=== PATIENT | female | born 1960 | race Caucasian/White ===

== ENCOUNTER 2020-09-20 18:23 | Emergency (ER) | payer MEDICARE, OTHER ==
[2020-09-20] MEDS ORDERED: Ketorolac 30 MG/ML SDV IM ONE (18:55)
[2020-09-20] MEDS ORDERED: Promethazine 25 MG/ML SDV IM ONE (18:56)
--- NOTE | 2020-09-20 19:10 | EDM.PDOC ---
<MichellePanda W - Last Filed: 09/20/20 19:45> ED HPI GENERAL MEDICAL PROBLEM - General Chief Complaint: Back Pain or Injury Stated Complaint: BACK PAIN Time Seen by Provider: 09/20/20 18:50 - Related Data Allergies Allergy/AdvReac Type Severity Reaction Status Date / Time almond Allergy Other Verified 09/20/20 18:42 cephalexin [From Keflex] Allergy Hives Verified 09/20/20 18:42 gluten Allergy Other Verified 09/20/20 18:42 metoclopramide [From Reglan] Allergy Other Verified 09/20/20 18:42 penicillin G Allergy Hives Verified 09/20/20 18:42 shellfish derived Allergy Anaphylactic Verified 09/20/20 18:42 Shock Sulfa (Sulfonamide Allergy Hives Verified 09/20/20 18:42 Antibiotics) Home Meds: Home Meds Butorphanol Tartrate 1 mg IH ASDIRECTED 09/20/20 [History] Escitalopram [Lexapro] 20 mg PO DAILY 09/20/20 [History] Galcanezumab-Gnlm [Emgality] 120 mg SQ ASDIRECTED 09/20/20 [History] Pantoprazole Sodium [Protonix] 20 mg PO DAILY 09/20/20 [History] Promethazine [Phenergan] 25 mg PO Q6H PRN 09/20/20 [History] QUEtiapine [SEROquel] 100 mg PO BID 09/20/20 [History] SUMAtriptan succinate [Imitrex] 100 mg PO ASDIRECTED PRN 09/20/20 [History] Sucralfate 1 gm PO QID 09/20/20 [History] Zolpidem [Ambien] 10 mg PO BEDTIME PRN 09/20/20 [History] busPIRone [Buspar] 15 mg PO BID 09/20/20 [History] clonazePAM [Clonazepam] 0.5 mg PO BID 09/20/20 [History] lamoTRIgine 600 mg PO BEDTIME 09/20/20 [History] oxyCODONE HCl/Acetaminophen [Oxycodone-Acetaminophen 5-325] 1 each PO Q12H PRN 09/20/20 [History] tiZANidine [Zanaflex] 4 mg PO Q8H PRN 09/20/20 [History] Course - Re-Assessments/Exams Free Text/Narrative Re-Assessment/Exam: 09/20/20 19:45 Minimal improvement with discomfort. Pt. was given morphine 4mg IM and dexamethasone 8mg IM. Departure - Departure Time of Disposition: 19:46 Disposition: Home, Self-Care 01 Clinical Impression: Sciatica, Chronic back pain - Discharge Information Instructions: Acetaminophen; Oxycodone capsules, Chronic Back Pain, [id number] Referrals: Cherrie Vega, PODIATRY PROFESSOR [Primary Care Provider] - Forms: ED Department Discharge Additional Instructions: Home to rest. Minimize physical activity. Follow-up with your PCP tomorrow. Because this is a chronic problem you will need to get your meds refilled from your PCP. Continue with your other medications. Pt. was also given 5 tablets of 5 mg oxycodone/acetaminophen. She reports that she only has 2 left. She was advised to follow-up in clinic [place] to get meds refilled. All questions were answered. <Jesús Terry - Last Filed: 09/21/20 20:42> ED HPI GENERAL MEDICAL PROBLEM - General Source of Information: Reports: Patient History Limitations: Reports: No Limitations - History of Present Illness INITIAL COMMENTS - FREE TEXT/NARRATIVE: Patient comes emergency department today from home with complaints of severe right lower back pain and buttocks pain. This patient relates at approximately 5 PM today she had a rather sudden onset of severe burning type pain in the right lower back down the lateral aspect of her right buttocks. She has had no recent falls trauma or injury. She did have an epidural injection in her back yesterday for her chronic bulging disc. She has no loss of bowel or bladder. She has had no recent falls trauma or injury. The epidural injection yesterday did not do much for her pain. She has no hematuria dysuria or urinary frequency. No black or tarry stools. No diarrhea. No flank pain. No fever no chills. She has chronically used multiple different medications to include Stadol Percocets for her chronic back pain. She did use the tizanidine at home prior to coming to the emergency department although she did not have much relief. Right Back Pain Score (Numeric/FACES): 9 Social & Family History - Tobacco Use Tobacco Use Status *Q: Never Tobacco User ED ROS GENERAL - Review of Systems Review Of Systems: Comprehensive ROS is negative, except as noted in HPI. ED EXAM,LOWER BACK PAIN/INJURY - Physical Exam Exam: See Below Text/Narrative:: Patient is quite anxious and constantly moving. She is mildly pale diaphoretic. She is crying without tears. She is yawning. Exam Limited By: No Limitations General Appearance: Alert, WD/WN, Anxious Eye Exam: Bilateral Eye: EOMI Respiratory/Chest: No Respiratory Distress, Lungs Clear Cardiovascular: Normal Peripheral Pulses, Regular Rate, Rhythm GI/Abdominal: Normal Bowel Sounds, Soft, Non-Tender (Female) Exam: Deferred Rectal (Female) Exam: Deferred Neurological: Alert, Normal Mood/Affect, Normal Plantar Flexion, No Motor/Sensory Deficits, Oriented x 3. No: Straight Leg Raise (L), Straight Leg Raise (R) DTR - Lower Extremities: 1+: Knee (R), Knee (L), Ankle (R), Ankle (L) Psychiatric: Anxious Skin Exam: Cool, Diaphoretic, Pallor Course - Vital Signs Last Recorded V/S: Last Vital Signs Temp 97.6 F 09/20/20 18:28 Pulse 88 09/20/20 18:28 Resp 20 09/20/20 18:28 BP 138/76 09/20/20 18:28 Pulse Ox 97 09/20/20 18:28 - Orders/Labs/Meds Meds: Medications Discontinued Medications Generic Name Dose Route Start Last Admin Trade Name Anirudh PRN Reason Stop Dose Admin Dexamethasone 8 mg 09/20/20 19:24 09/20/20 19:43 Dexamethasone 4 Mg/Ml Sdv IM 09/20/20 19:25 8 mg ONETIME ONE Administration Ketorolac Tromethamine 30 mg 09/20/20 18:55 09/20/20 19:06 Ketorolac 30 Mg/Ml Sdv IM 09/20/20 18:56 30 mg ONETIME ONE Administration Morphine Sulfate 4 mg 09/20/20 19:23 09/20/20 19:44 Morphine 4 Mg/Ml Syringe IM 09/20/20 19:24 4 mg ONETIME ONE Administration Oxycodone/Acetaminophen 1 packet 09/20/20 19:24 09/20/20 19:43 Take Home: Acetaminophen/Oxycodone 325-5 Mg, 5 Tab Pack PO 09/20/20 19:25 1 packet ONETIME ONE Administration Promethazine HCl 25 mg 09/20/20 18:56 09/20/20 19:07 Promethazine 25 Mg/Ml Sdv IM 09/20/20 18:57 25 mg ONETIME ONE Administration - Re-Assessments/Exams Free Text/Narrative Re-Assessment/Exam: 09/20/20 19:11 Phenergan 25mg IM Ketorolac 30mg IM Report to Panda Martinez PA-C. Sepsis Event Note (ED) - Evaluation Sepsis Screening Result: No Definite Risk
[2020-09-20] MEDS ORDERED: Morphine 4 MG/ML Syringe IM ONE (19:23)
[2020-09-20] MEDS ORDERED: Take Home: Acetaminophen/oxyCODONE 325-5 MG, 5 Tab Pack PO ONE (19:24)
[2020-09-20] MEDS ORDERED: Dexamethasone 4 MG/ML SDV IM ONE (19:24)
== END 2020-09-20 19:53 | disposition home or self-care (01) ==
LOC: VM.ED 18:23
DX: M54.41 Lumbago with sciatica, right side (principal); Z88.0 Allergy status to penicillin; Z88.2 Allergy status to sulfonamides; Z91.013 Allergy to seafood; Z88.1 Allergy status to other antibiotic agents; Z91.018 Allergy to other foods
CPT/HCPCS: 96372; 99283; A9270-GY; J1100; J1885; J2270; J2550

== ENCOUNTER 2020-10-24 12:08 | Emergency (ER) | payer MEDICARE, OTHER ==
[2020-10-24] MEDS ORDERED: Ketorolac 30 MG/ML SDV IM ONE (12:22)
--- NOTE | 2020-10-24 12:28 | EDM.PDOC ---
ED HPI GENERAL MEDICAL PROBLEM - General Chief Complaint: Back Pain or Injury Stated Complaint: back and rib pain Time Seen by Provider: 10/24/20 12:15 Source of Information: Reports: Patient History Limitations: Reports: No Limitations - History of Present Illness INITIAL COMMENTS - FREE TEXT/NARRATIVE: Patient comes in the emergency department with complaint of right rib pain radiating to the back. Patient states that she has a nondisplaced rib fracture of the ninth and 10th rib that was diagnosed on Sunday or Sunday of this last week.. Patient was given extensive amount of analgesic and narcotic medication to help with the pain and discomfort. Patient also has chronic pain and has medications for that. Patient states that she was given Toradol earlier in the week and she would be interested in receiving another Toradol injection. She states that the throbbing sensation on that right side is more apparent and concerning today. She denies any shortness of breath, chest pain, dizziness, numbness, tingling, decreased range of motion, abdominal pain, or genitourinary concerns. Patient states that she believes that her injury is healing however the swelling and discomfort became too much this morning and she would like something for pain. Onset: Gradual Location: Reports: Abdomen Quality: Reports: Ache, Throbbing Severity: Moderate Improves with: Reports: Rest Worsens with: Reports: Movement Context: Reports: Other - Related Data Allergies Allergy/AdvReac Type Severity Reaction Status Date / Time almond Allergy Other Verified 09/20/20 18:42 cephalexin [From Keflex] Allergy Hives Verified 09/20/20 18:42 gluten Allergy Other Verified 09/20/20 18:42 metoclopramide [From Reglan] Allergy Other Verified 09/20/20 18:42 penicillin G Allergy Hives Verified 09/20/20 18:42 shellfish derived Allergy Anaphylactic Verified 09/20/20 18:42 Shock Sulfa (Sulfonamide Allergy Hives Verified 09/20/20 18:42 Antibiotics) Home Meds: Home Meds Butorphanol Tartrate 1 mg IH ASDIRECTED 09/20/20 [History] Escitalopram [Lexapro] 20 mg PO DAILY 09/20/20 [History] Galcanezumab-Gnlm [Emgality] 120 mg SQ ASDIRECTED 09/20/20 [History] Pantoprazole Sodium [Protonix] 20 mg PO DAILY 09/20/20 [History] Promethazine [Phenergan] 25 mg PO Q6H PRN 09/20/20 [History] QUEtiapine [SEROquel] 100 mg PO BID 09/20/20 [History] SUMAtriptan succinate [Imitrex] 100 mg PO ASDIRECTED PRN 09/20/20 [History] Sucralfate 1 gm PO QID 09/20/20 [History] Zolpidem [Ambien] 10 mg PO BEDTIME PRN 09/20/20 [History] busPIRone [Buspar] 15 mg PO BID 09/20/20 [History] clonazePAM [Clonazepam] 0.5 mg PO BID 09/20/20 [History] lamoTRIgine 600 mg PO BEDTIME 09/20/20 [History] oxyCODONE HCl/Acetaminophen [Oxycodone-Acetaminophen 5-325] 1 each PO Q12H PRN 09/20/20 [History] tiZANidine [Zanaflex] 4 mg PO Q8H PRN 09/20/20 [History] ED ROS GENERAL - Review of Systems Review Of Systems: Comprehensive ROS is negative, except as noted in HPI. Constitutional: Reports: No Symptoms HEENT: Reports: No Symptoms Respiratory: Reports: No Symptoms Cardiovascular: Reports: No Symptoms Endocrine: Reports: No Symptoms GI/Abdominal: Reports: No Symptoms : Reports: No Symptoms Musculoskeletal: Reports: Back Pain Skin: Reports: No Symptoms Neurological: Reports: No Symptoms Psychiatric: Reports: No Symptoms Hematologic/Lymphatic: Reports: No Symptoms Immunologic: Reports: No Symptoms ED EXAM, GENERAL - Physical Exam Exam: See Below Exam Limited By: No Limitations General Appearance: Alert, WD/WN, No Apparent Distress Head: Atraumatic, Normocephalic Neck: Normal Inspection, Supple, Non-Tender, Full Range of Motion Respiratory/Chest: No Respiratory Distress, Lungs Clear, Normal Breath Sounds, No Accessory Muscle Use, Chest Non-Tender Cardiovascular: Normal Peripheral Pulses, Regular Rate, Rhythm, No Edema, No Rub GI/Abdominal: Normal Bowel Sounds, Soft, Non-Tender Back Exam: Normal Inspection Extremities: Normal Inspection, Normal Range of Motion, Non-Tender, No Pedal Edema, Normal Capillary Refill Neurological: Alert, Oriented Psychiatric: Normal Affect, Normal Mood Course - Orders/Labs/Meds Orders: Active Orders 24 hr Category Date Time Status Ketorolac [Toradol] Med 10/24/20 12:22 Once 30 mg IM ONETIME ONE Departure - Departure Time of Disposition: 12:30 Disposition: Home, Self-Care 01 Condition: Good Clinical Impression: Rib pain on right side - Discharge Information *PRESCRIPTION DRUG MONITORING PROGRAM REVIEWED*: Not Applicable *COPY OF PRESCRIPTION DRUG MONITORING REPORT IN PATIENT GERI: Not Applicable Instructions: Back Injury Prevention, [id number] Forms: ED Department Discharge Additional Instructions: 1. rest 2. Can take your PRN pain medications that are prescribed already 3. Continue all at home medications 4. Activity and diet as tolerated 5. Can take over the counter Tylenol for any pain or discomfort 6. use ice or heat for 20 minutes at a time 3-4 times a day 7. Follow up with PCP if symptoms continue, return, or progress 8. Call with any questions or concerns - My Orders Last 24 Hours: My Active Orders 10/24/20 12:22 Ketorolac [Toradol] 30 mg IM ONETIME ONE - Assessment/Plan Last 24 Hours: My Active Orders 10/24/20 12:22 Ketorolac [Toradol] 30 mg IM ONETIME ONE Assessment:: 1. rib and back pain Plan: 1. Toradol IM injection 2. Ice Applied to the affected limb 3. Medication offered to the patient 4. Education regarding splinting, activity, [id number] medications, and follow-up care provided. 5. All questions and concerns addressed with the patient prior to discharge
== END 2020-10-24 12:45 | disposition home or self-care (01) ==
LOC: VM.ED 12:08
DX: R07.81 Pleurodynia (principal); Z91.018 Allergy to other foods; Z88.1 Allergy status to other antibiotic agents; Z88.8 Allergy status to other drugs, medicaments and biological substances; Z88.0 Allergy status to penicillin; Z91.013 Allergy to seafood; Z88.2 Allergy status to sulfonamides; Z79.899 Other long term (current) drug therapy
CPT/HCPCS: 96372; 99283; J1885

== ENCOUNTER 2021-04-19 16:44 | Inpatient (IN) | payer MEDICARE, OTHER ==
[2021-04-19] MEDS: oxyCODONE 5 MG Tab PO PRN ×2 (18:38→22:42)
[2021-04-19] MEDS ORDERED: oxyCODONE 5 MG Tab PO PRN (19:40)
[2021-04-19] MEDS ORDERED: Promethazine 25 MG Tab PO PRN (19:40)
[2021-04-19] MEDS ORDERED: MOMETASONE FUROATE TOP PRN (19:40)
[2021-04-19] MEDS: lamoTRIgine 100 MG Tab PO SCH (20:48)
[2021-04-19] MEDS: ClonazePAM 0.5 MG Tab PO SCH (20:48)
[2021-04-19] MEDS: busPIRone 15 MG Tab PO SCH (20:48)
[2021-04-19] MEDS: QUEtiapine 100 MG Tab PO SCH (20:49)
[2021-04-19] MEDS: Gabapentin 400 MG Cap PO SCH (20:49)
[2021-04-19] MEDS: Pantoprazole 40 MG Tab.CR PO SCH (20:49)
[2021-04-20] MEDS: oxyCODONE 5 MG Tab PO PRN ×5 (03:14→20:27)
[2021-04-20 07:48] LABS: ANION GAP 9.4 mmol/L (5-15)
[2021-04-20] MEDS: Zinc Sulfate 220 MG Cap PO SCH (07:56)
[2021-04-20] MEDS: Gabapentin 400 MG Cap PO SCH ×4 (07:56→20:27)
[2021-04-20] MEDS ORDERED: Non-Formulary Medication 1 Each (Biotin [Biotin] 5 MG Capsule) PO SCH (08:00)
[2021-04-20] MEDS ORDERED: Zinc Sulfate 220 MG Cap PO SCH (08:00)
[2021-04-20] MEDS: Ascorbic Acid 500 MG Tab PO SCH (08:02)
[2021-04-20] MEDS: Pantoprazole 40 MG Tab.CR PO SCH ×2 (08:04→20:28)
[2021-04-20] MEDS: QUEtiapine 100 MG Tab PO SCH ×2 (08:05→20:28)
[2021-04-20] MEDS: Citalopram 20 MG Tab PO SCH (08:05)
[2021-04-20] MEDS: busPIRone 15 MG Tab PO SCH ×2 (08:05→20:27)
[2021-04-20] MEDS: Cholecalciferol (Vitamin D3) 25 MCG Tab PO SCH (08:05)
[2021-04-20] MEDS ORDERED: Potassium Chloride 20 MEQ Tab.ER PO ONE (13:52)
[2021-04-20] MEDS: Sucralfate 1 GM Tab PO SCH (16:16)
[2021-04-20] MEDS: ClonazePAM 0.5 MG Tab PO SCH (20:26)
[2021-04-20] MEDS: lamoTRIgine 100 MG Tab PO SCH (20:28)
[2021-04-21] MEDS: oxyCODONE 5 MG Tab PO PRN ×4 (02:00→14:31)
[2021-04-21] MEDS: Citalopram 20 MG Tab PO SCH (07:54)
[2021-04-21] MEDS: Cholecalciferol (Vitamin D3) 25 MCG Tab PO SCH (07:54)
[2021-04-21] MEDS: Pantoprazole 40 MG Tab.CR PO SCH ×2 (07:54→21:11)
[2021-04-21] MEDS: Magnesium Hydroxide 400 MG/5 ML Susp 30 ML Cup PO PRN (07:54)
[2021-04-21] MEDS: QUEtiapine 100 MG Tab PO SCH ×2 (07:55→21:12)
[2021-04-21] MEDS: Gabapentin 400 MG Cap PO SCH ×4 (07:55→21:11)
[2021-04-21] MEDS: Ascorbic Acid 500 MG Tab PO SCH (07:55)
[2021-04-21] MEDS: Zinc Sulfate 220 MG Cap PO SCH (07:55)
[2021-04-21] MEDS: busPIRone 15 MG Tab PO SCH ×2 (07:55→21:11)
[2021-04-21] MEDS: Sucralfate 1 GM Tab PO SCH (16:35)
[2021-04-21] MEDS ORDERED: Acetaminophen/oxyCODONE 325-5 MG Tab PO PRN (17:23)
[2021-04-21] MEDS: Acetaminophen/oxyCODONE 325-5 MG Tab PO PRN (18:46)
[2021-04-21] MEDS: Morphine 15 MG Tab.ER PO SCH (21:10)
[2021-04-21] MEDS: ClonazePAM 0.5 MG Tab PO SCH (21:11)
[2021-04-21] MEDS: lamoTRIgine 100 MG Tab PO SCH (21:11)
[2021-04-22] MEDS: Acetaminophen/oxyCODONE 325-5 MG Tab PO PRN ×3 (03:29→19:35)
[2021-04-22] MEDS: Polyethylene Glycol 3350 Powder 17 GM Packet PO PRN (08:33)
[2021-04-22] MEDS: Morphine 15 MG Tab.ER PO SCH ×2 (08:34→20:51)
[2021-04-22] MEDS: Gabapentin 400 MG Cap PO SCH ×4 (08:34→20:51)
[2021-04-22] MEDS: Pantoprazole 40 MG Tab.CR PO SCH ×2 (08:35→20:51)
[2021-04-22] MEDS: Ascorbic Acid 500 MG Tab PO SCH (08:35)
[2021-04-22] MEDS: Zinc Sulfate 220 MG Cap PO SCH (08:35)
[2021-04-22] MEDS: QUEtiapine 100 MG Tab PO SCH ×2 (08:35→20:51)
[2021-04-22] MEDS: Citalopram 20 MG Tab PO SCH (08:35)
[2021-04-22] MEDS: Cholecalciferol (Vitamin D3) 25 MCG Tab PO SCH (08:35)
[2021-04-22] MEDS: busPIRone 15 MG Tab PO SCH ×2 (08:36→20:50)
[2021-04-22] MEDS: Sucralfate 1 GM Tab PO SCH (16:33)
[2021-04-22] MEDS: Acetaminophen 325 MG Tab PO PRN (16:33)
[2021-04-22] MEDS: ClonazePAM 0.5 MG Tab PO SCH (20:50)
[2021-04-22] MEDS: lamoTRIgine 100 MG Tab PO SCH (20:50)
[2021-04-23] MEDS: Acetaminophen 325 MG Tab PO PRN ×2 (00:44→17:28)
[2021-04-23] MEDS: Acetaminophen/oxyCODONE 325-5 MG Tab PO PRN ×3 (04:20→20:44)
[2021-04-23] MEDS: Morphine 15 MG Tab.ER PO SCH ×2 (09:31→19:54)
[2021-04-23] MEDS: Pantoprazole 40 MG Tab.CR PO SCH ×2 (09:31→19:53)
[2021-04-23] MEDS: busPIRone 15 MG Tab PO SCH ×2 (09:32→19:53)
[2021-04-23] MEDS: Zinc Sulfate 220 MG Cap PO SCH (09:32)
[2021-04-23] MEDS: QUEtiapine 100 MG Tab PO SCH ×2 (09:32→19:53)
[2021-04-23] MEDS: Ascorbic Acid 500 MG Tab PO SCH (09:32)
[2021-04-23] MEDS: Citalopram 20 MG Tab PO SCH (09:32)
[2021-04-23] MEDS: Gabapentin 400 MG Cap PO SCH ×4 (09:32→19:52)
[2021-04-23] MEDS: Cholecalciferol (Vitamin D3) 25 MCG Tab PO SCH (09:32)
[2021-04-23] MEDS: Magnesium Hydroxide 400 MG/5 ML Susp 30 ML Cup PO PRN (10:53)
[2021-04-23] MEDS: Sucralfate 1 GM Tab PO SCH (17:28)
[2021-04-23] MEDS: lamoTRIgine 100 MG Tab PO SCH (19:51)
[2021-04-23] MEDS: ClonazePAM 0.5 MG Tab PO SCH (19:54)
[2021-04-24] MEDS: Acetaminophen/oxyCODONE 325-5 MG Tab PO PRN ×3 (05:20→21:35)
[2021-04-24] MEDS: Morphine 15 MG Tab.ER PO SCH ×2 (08:15→20:21)
[2021-04-24] MEDS: Pantoprazole 40 MG Tab.CR PO SCH ×2 (08:15→20:20)
[2021-04-24] MEDS: Ascorbic Acid 500 MG Tab PO SCH (08:15)
[2021-04-24] MEDS: Cholecalciferol (Vitamin D3) 25 MCG Tab PO SCH (08:15)
[2021-04-24] MEDS: Gabapentin 400 MG Cap PO SCH ×4 (08:15→20:20)
[2021-04-24] MEDS: Zinc Sulfate 220 MG Cap PO SCH (08:16)
[2021-04-24] MEDS: busPIRone 15 MG Tab PO SCH ×2 (08:16→20:21)
[2021-04-24] MEDS: Polyethylene Glycol 3350 Powder 17 GM Packet PO PRN (08:16)
[2021-04-24] MEDS ORDERED: Magnesium Citrate Solution 296 ML Bottle PO PRN (09:43)
[2021-04-24] MEDS ORDERED: Bisacodyl 10 MG Supp RECTAL PRN (09:45)
[2021-04-24] MEDS: Acetaminophen 325 MG Tab PO PRN ×2 (10:13→17:11)
[2021-04-24] MEDS: Docusate Sodium 100 MG Cap PO SCH ×2 (10:13→20:21)
[2021-04-24] MEDS: Sucralfate 1 GM Tab PO SCH (17:10)
[2021-04-24] MEDS: Citalopram 20 MG Tab PO SCH (20:20)
[2021-04-24] MEDS: ClonazePAM 0.5 MG Tab PO SCH (20:21)
[2021-04-24] MEDS: QUEtiapine 100 MG Tab PO SCH (20:21)
[2021-04-24] MEDS: lamoTRIgine 100 MG Tab PO SCH (20:22)
[2021-04-25] MEDS: Acetaminophen/oxyCODONE 325-5 MG Tab PO PRN ×3 (06:15→23:10)
[2021-04-25] MEDS: Morphine 15 MG Tab.ER PO SCH ×2 (08:35→20:35)
[2021-04-25] MEDS: Ascorbic Acid 500 MG Tab PO SCH (08:35)
[2021-04-25] MEDS: Pantoprazole 40 MG Tab.CR PO SCH ×2 (08:35→20:35)
[2021-04-25] MEDS: Zinc Sulfate 220 MG Cap PO SCH (08:36)
[2021-04-25] MEDS: Cholecalciferol (Vitamin D3) 25 MCG Tab PO SCH (08:36)
[2021-04-25] MEDS: Gabapentin 400 MG Cap PO SCH ×4 (08:36→20:35)
[2021-04-25] MEDS: busPIRone 15 MG Tab PO SCH ×2 (08:36→20:34)
[2021-04-25] MEDS: Docusate Sodium 100 MG Cap PO SCH ×2 (08:36→20:36)
[2021-04-25] MEDS: Acetaminophen 325 MG Tab PO PRN ×2 (11:43→15:54)
[2021-04-25] MEDS: Sucralfate 1 GM Tab PO SCH (18:02)
[2021-04-25] MEDS: lamoTRIgine 100 MG Tab PO SCH (20:33)
[2021-04-25] MEDS: QUEtiapine 100 MG Tab PO SCH (20:34)
[2021-04-25] MEDS: ClonazePAM 0.5 MG Tab PO SCH (20:36)
[2021-04-25] MEDS: Citalopram 20 MG Tab PO SCH (20:37)
[2021-04-26] MEDS: SUMAtriptan 50 MG Tab PO PRN (02:44)
[2021-04-26] MEDS: Acetaminophen/oxyCODONE 325-5 MG Tab PO PRN ×2 (06:10→14:27)
[2021-04-26] MEDS: Ascorbic Acid 500 MG Tab PO SCH (07:49)
[2021-04-26] MEDS: Docusate Sodium 100 MG Cap PO SCH ×2 (07:49→20:32)
[2021-04-26] MEDS: Pantoprazole 40 MG Tab.CR PO SCH ×2 (07:49→20:32)
[2021-04-26] MEDS: busPIRone 15 MG Tab PO SCH ×2 (07:49→20:33)
[2021-04-26] MEDS: Gabapentin 400 MG Cap PO SCH ×4 (07:49→20:33)
[2021-04-26] MEDS: Morphine 15 MG Tab.ER PO SCH ×2 (07:49→20:32)
[2021-04-26] MEDS: Cholecalciferol (Vitamin D3) 25 MCG Tab PO SCH (07:49)
[2021-04-26] MEDS: Zinc Sulfate 220 MG Cap PO SCH (07:51)
[2021-04-26 08:53] LABS: ANION GAP 10.9 mmol/L (5-15)
[2021-04-26] MEDS: Acetaminophen 325 MG Tab PO PRN ×2 (11:43→16:54)
[2021-04-26] MEDS: Sucralfate 1 GM Tab PO SCH (16:55)
[2021-04-26] MEDS: lamoTRIgine 100 MG Tab PO SCH (20:31)
[2021-04-26] MEDS: Citalopram 20 MG Tab PO SCH (20:32)
[2021-04-26] MEDS: ClonazePAM 0.5 MG Tab PO SCH (20:33)
[2021-04-26] MEDS: QUEtiapine 100 MG Tab PO SCH (20:34)
[2021-04-27] MEDS: Acetaminophen 325 MG Tab PO PRN ×4 (04:01→20:16)
[2021-04-27] MEDS: Acetaminophen/oxyCODONE 325-5 MG Tab PO PRN ×2 (04:02→10:59)
[2021-04-27] MEDS: Morphine 15 MG Tab.ER PO SCH ×2 (08:31→20:18)
[2021-04-27] MEDS: Zinc Sulfate 220 MG Cap PO SCH (08:32)
[2021-04-27] MEDS: Docusate Sodium 100 MG Cap PO SCH ×2 (08:32→20:15)
[2021-04-27] MEDS: Ascorbic Acid 500 MG Tab PO SCH (08:32)
[2021-04-27] MEDS: Cholecalciferol (Vitamin D3) 25 MCG Tab PO SCH (08:33)
[2021-04-27] MEDS: Pantoprazole 40 MG Tab.CR PO SCH ×2 (08:33→20:19)
[2021-04-27] MEDS: Gabapentin 400 MG Cap PO SCH ×4 (08:33→20:17)
[2021-04-27] MEDS: busPIRone 15 MG Tab PO SCH ×2 (08:33→20:19)
[2021-04-27] MEDS: Polyethylene Glycol 3350 Powder 17 GM Packet PO PRN (08:34)
[2021-04-27] MEDS: SUMAtriptan 50 MG Tab PO PRN (08:40)
[2021-04-27] MEDS: Sucralfate 1 GM Tab PO SCH (17:06)
[2021-04-27] MEDS: QUEtiapine 100 MG Tab PO SCH (20:15)
[2021-04-27] MEDS: ClonazePAM 0.5 MG Tab PO SCH (20:17)
[2021-04-27] MEDS: lamoTRIgine 100 MG Tab PO SCH (20:18)
[2021-04-27] MEDS: Citalopram 20 MG Tab PO SCH (20:19)
[2021-04-28] MEDS: Acetaminophen/oxyCODONE 325-5 MG Tab PO PRN ×3 (03:59→23:40)
[2021-04-28] MEDS: Docusate Sodium 100 MG Cap PO SCH ×2 (08:49→20:40)
[2021-04-28] MEDS: Polyethylene Glycol 3350 Powder 17 GM Packet PO PRN (08:49)
[2021-04-28] MEDS: Zinc Sulfate 220 MG Cap PO SCH (08:50)
[2021-04-28] MEDS: Gabapentin 400 MG Cap PO SCH ×4 (08:50→20:39)
[2021-04-28] MEDS: Cholecalciferol (Vitamin D3) 25 MCG Tab PO SCH (08:50)
[2021-04-28] MEDS: Ascorbic Acid 500 MG Tab PO SCH (08:50)
[2021-04-28] MEDS: Morphine 15 MG Tab.ER PO SCH ×2 (08:50→20:39)
[2021-04-28] MEDS: Pantoprazole 40 MG Tab.CR PO SCH ×2 (08:50→20:38)
[2021-04-28] MEDS: busPIRone 15 MG Tab PO SCH ×2 (08:51→20:40)
[2021-04-28] MEDS: Acetaminophen 325 MG Tab PO PRN (11:15)
[2021-04-28] MEDS: Sucralfate 1 GM Tab PO SCH (17:09)
[2021-04-28] MEDS: lamoTRIgine 100 MG Tab PO SCH (20:36)
[2021-04-28] MEDS: QUEtiapine 100 MG Tab PO SCH (20:38)
[2021-04-28] MEDS: Citalopram 20 MG Tab PO SCH (20:38)
[2021-04-28] MEDS: ClonazePAM 0.5 MG Tab PO SCH (20:40)
[2021-04-29] MEDS: Acetaminophen/oxyCODONE 325-5 MG Tab PO PRN (07:44)
[2021-04-29] MEDS: Morphine 15 MG Tab.ER PO SCH (07:53)
[2021-04-29] MEDS: busPIRone 15 MG Tab PO SCH (07:53)
[2021-04-29] MEDS: Docusate Sodium 100 MG Cap PO SCH (07:53)
[2021-04-29] MEDS: Gabapentin 400 MG Cap PO SCH ×2 (07:54→11:22)
[2021-04-29] MEDS: Pantoprazole 40 MG Tab.CR PO SCH (07:54)
[2021-04-29] MEDS: Ascorbic Acid 500 MG Tab PO SCH (07:54)
[2021-04-29] MEDS: Zinc Sulfate 220 MG Cap PO SCH (07:54)
[2021-04-29] MEDS: Cholecalciferol (Vitamin D3) 25 MCG Tab PO SCH (07:54)
[2021-04-29] MEDS: Acetaminophen 325 MG Tab PO PRN (11:22)
== END 2021-04-29 12:30 | disposition home or self-care (01) | DRG 561 ==
LOC: VM.MS 17:30
PROVIDERS: ADMIT Nurse Practitioner Family; ATTEND Nurse Practitioner Family
DX: Z47.89 Encounter for other orthopedic aftercare (principal); Z98.1 Arthrodesis status; G89.29 Other chronic pain; M54.59 Other low back pain; F11.90 Opioid use, unspecified, uncomplicated; F31.9 Bipolar disorder, unspecified; F90.9 Attention-deficit hyperactivity disorder, unspecified type; K21.9 Gastro-esophageal reflux disease without esophagitis; R13.14 Dysphagia, pharyngoesophageal phase; K20.90 Esophagitis, unspecified without bleeding; F41.1 Generalized anxiety disorder; K22.70 Barrett's esophagus without dysplasia; Z87.442 Personal history of urinary calculi; Z79.891 Long term (current) use of opiate analgesic; G43.909 Migraine, unspecified, not intractable, without status migrainosus; Z98.51 Tubal ligation status; Z98.890 Other specified postprocedural states; Z90.710 Acquired absence of both cervix and uterus; Z85.42 Personal history of malignant neoplasm of other parts of uterus; Z90.49 Acquired absence of other specified parts of digestive tract
CPT/HCPCS: 36415; 72131; 80053; 82728; 82746; 83540; 83550; 83605; 84145; 85025; 86140; 87040; 97110-GP; 97116-GP; 97162-GP; 97166-GO; 97530-GP; 97535-GO; A9270-GY

== ENCOUNTER 2021-07-02 19:29 | Emergency (ER) | payer MEDICARE, OTHER ==
[2021-07-02] MEDS ORDERED: Take Home: Acetaminophen/oxyCODONE 325-5 MG, 5 Tab Pack PO ONE (20:17)
[2021-07-02] MEDS ORDERED: Orphenadrine 60 MG/2 ML Inj IM ONE (20:17)
[2021-07-02] MEDS ORDERED: Take Home: Cyclobenzaprine 10 MG Tab, 4 Tab Pack PO ONE (20:34)
== END 2021-07-02 20:45 | disposition home or self-care (01) ==
LOC: VM.ED 19:29
DX: M54.50 Low back pain, unspecified (principal); Z88.0 Allergy status to penicillin; Z88.2 Allergy status to sulfonamides; Z91.013 Allergy to seafood; Z91.018 Allergy to other foods; Z88.1 Allergy status to other antibiotic agents; Z79.82 Long term (current) use of aspirin; Z79.899 Other long term (current) drug therapy
CPT/HCPCS: 96372; 99283; A9270-GY; J2360

== ENCOUNTER 2021-08-28 11:45 | Emergency (ER) | payer MEDICARE, OTHER ==
[2021-08-28] MEDS ORDERED: Sodium Chloride 0.9% 10 ML Syringe FLUSH PRN (11:57)
[2021-08-28] MEDS ORDERED: Ketorolac 30 MG/ML SDV IVPUSH ONE (11:57)
[2021-08-28] MEDS ORDERED: Sodium Chloride 0.9% 1,000 ML IV ONE (11:57)
[2021-08-28] MEDS ORDERED: Prochlorperazine 10 MG/2 ML SDV IV ONE (11:57)
[2021-08-28] MEDS ORDERED: diphenhydrAMINE 50 MG/ML SDV IVPUSH ONE (11:57)
[2021-08-28] MEDS ORDERED: Ondansetron 4 MG/2 ML SDV IVPUSH ONE (12:14)
== END 2021-08-28 12:55 | disposition home or self-care (01) ==
LOC: VM.ED 11:45
DX: G43.909 Migraine, unspecified, not intractable, without status migrainosus (principal); Z79.899 Other long term (current) drug therapy; Z88.2 Allergy status to sulfonamides; Z91.013 Allergy to seafood; Z88.0 Allergy status to penicillin; Z91.018 Allergy to other foods; Z88.8 Allergy status to other drugs, medicaments and biological substances; Z88.1 Allergy status to other antibiotic agents
CPT/HCPCS: 96361; 96374; 96375; 99283-25; 99284; J1200; J1885; J2405; J7030

== ENCOUNTER 2021-12-18 00:20 | Emergency (ER) | payer MEDICARE, OTHER ==
[2021-12-18] MEDS ORDERED: Sodium Chloride 0.9% 10 ML Syringe FLUSH PRN (00:26)
[2021-12-18] MEDS ORDERED: diphenhydrAMINE 50 MG/ML SDV IVPUSH ONE (00:27)
[2021-12-18] MEDS: diphenhydrAMINE 50 MG/ML SDV IVPUSH ONE (01:05)
[2021-12-18] MEDS: Ketorolac 15 MG/ML SDV IVPUSH ONE (01:06)
[2021-12-18] MEDS: Dexamethasone 4 MG/ML SDV IVPUSH ONE (01:06)
[2021-12-18] MEDS: Lactated Ringers 1,000 ML IV ONE (01:10)
[2021-12-18] MEDS: Ketamine 200 MG/20 ML MDV IVPUSH ONE (02:24)
== END 2021-12-18 02:59 | disposition home or self-care (01) ==
LOC: VM.ED 00:20
DX: G43.909 Migraine, unspecified, not intractable, without status migrainosus (principal); Z88.1 Allergy status to other antibiotic agents; Z88.0 Allergy status to penicillin; Z91.013 Allergy to seafood; Z91.018 Allergy to other foods; Z88.8 Allergy status to other drugs, medicaments and biological substances; Z88.2 Allergy status to sulfonamides; Z79.899 Other long term (current) drug therapy
CPT/HCPCS: 96365; 96375; 99283; J1100; J1200; J1885; J3230; J3490; J7120

== ENCOUNTER 2022-12-22 17:02 | Emergency (ER) | payer MEDICARE, OTHER ==
[2022-12-22] MEDS ORDERED: Ketorolac 30 MG/ML SDV IM ONE (17:09)
[2022-12-22] MEDS ORDERED: Ondansetron 4 MG/2 ML SDV IM ONE (17:09)
[2022-12-22] MEDS ORDERED: diphenhydrAMINE 50 MG/ML SDV IM ONE (17:09)
[2022-12-22] MEDS ORDERED: Ketamine 200 MG/20 ML MDV IM ONE (17:13)
[2022-12-22] MEDS ORDERED: Sodium Chloride 0.9% 10 ML Syringe FLUSH PRN (17:14)
[2022-12-22] MEDS: diphenhydrAMINE 50 MG/ML SDV IVPUSH ONE (17:38)
[2022-12-22] MEDS: Ketorolac 30 MG/ML SDV IVPUSH ONE (17:38)
[2022-12-22] MEDS: Ondansetron 4 MG/2 ML SDV IVPUSH ONE (17:39)
[2022-12-22] MEDS: Ketamine 200 MG/20 ML MDV IVPUSH ONE (17:39)
== END 2022-12-22 18:35 | disposition home or self-care (01) ==
LOC: VM.ED 17:02
DX: G43.109 Migraine with aura, not intractable, without status migrainosus (principal); Z88.2 Allergy status to sulfonamides; Z91.013 Allergy to seafood; Z91.018 Allergy to other foods; Z88.1 Allergy status to other antibiotic agents; Z88.8 Allergy status to other drugs, medicaments and biological substances; Z88.0 Allergy status to penicillin; Z79.899 Other long term (current) drug therapy
CPT/HCPCS: 96365; 96375; 99283-25; J1200; J1885; J2405; J3230; J3490

== ENCOUNTER 2022-12-24 14:52 | Emergency (ER) | payer MEDICARE, OTHER ==
[2022-12-24] MEDS ORDERED: Sodium Chloride 0.9% 10 ML Syringe FLUSH PRN (15:12)
[2022-12-24] MEDS ORDERED: Ondansetron 4 MG/2 ML SDV IVPUSH ONE (15:12)
[2022-12-24] MEDS ORDERED: Lactated Ringers 1,000 ML IV ONE (15:12)
[2022-12-24] MEDS ORDERED: Ketorolac 15 MG/ML SDV IVPUSH ONE (15:13)
[2022-12-24] MEDS ORDERED: diphenhydrAMINE 50 MG/ML SDV IVPUSH ONE (15:13)
== END 2022-12-24 17:41 | disposition home or self-care (01) ==
LOC: VM.ED 14:52
DX: G43.909 Migraine, unspecified, not intractable, without status migrainosus (principal); Z88.0 Allergy status to penicillin; Z91.013 Allergy to seafood; Z88.2 Allergy status to sulfonamides; Z91.018 Allergy to other foods; Z88.1 Allergy status to other antibiotic agents; Z88.8 Allergy status to other drugs, medicaments and biological substances; Z79.899 Other long term (current) drug therapy
CPT/HCPCS: 96361; 96365; 96375; 99283; J1200; J1885; J2405; J3230; J3490; J7120

== ENCOUNTER 2023-04-19 14:53 | Emergency (ER) | payer MEDICARE, OTHER ==
[2023-04-19] MEDS ORDERED: HYDROmorphone 0.5 MG/0.5 ML Syringe IVPUSH ONE (15:22)
[2023-04-19] MEDS ORDERED: Ketorolac 30 MG/ML SDV IVPUSH ONE (15:22)
[2023-04-19] MEDS ORDERED: Ondansetron 4 MG/2 ML SDV IVPUSH ONE (15:22)
[2023-04-19] MEDS ORDERED: Naloxone 0.4 MG/ML SDV IVPUSH PRN (15:22)
[2023-04-19] MEDS ORDERED: Sodium Chloride 0.9% 1,000 ML IV ONE (15:22)
== END 2023-04-19 16:48 | disposition home or self-care (01) ==
LOC: VM.ED 14:53
DX: G43.909 Migraine, unspecified, not intractable, without status migrainosus (principal); Z88.2 Allergy status to sulfonamides; Z88.0 Allergy status to penicillin; Z91.018 Allergy to other foods; Z91.013 Allergy to seafood; Z88.8 Allergy status to other drugs, medicaments and biological substances; Z79.899 Other long term (current) drug therapy
CPT/HCPCS: 96361; 96374; 96375; 99283; J1170; J1885; J2405; J7030

== ENCOUNTER 2023-07-09 12:34 | Emergency (ER) | payer MEDICARE, OTHER ==
[2023-07-09] MEDS ORDERED: Sodium Chloride 0.9% 10 ML Syringe FLUSH PRN (12:39)
[2023-07-09] MEDS: Lactated Ringers 1,000 ML IV ONE (12:52)
[2023-07-09] MEDS: HYDROmorphone 0.5 MG/0.5 ML Syringe IVPUSH ONE (12:52)
[2023-07-09 12:54] LABS: APPEARANCE,URINE CLEAR (CLEAR); BILIRUBIN,URINE NEGATIVE (NEGATIVE); COLOR,URINE YELLOW (YELLOW); GLUCOSE,URINE NEGATIVE (NEGATIVE); KETONES,URINE NEGATIVE (NEGATIVE); LEUKOCYTE ESTERASE,URINE NEGATIVE (NEGATIVE); NITRITE,URINE NEGATIVE (NEGATIVE); OCCULT BLOOD,URINE NEGATIVE (NEGATIVE); PH,URINE 7.5 (5.0-8.0); PROTEIN,URINE NEGATIVE (NEGATIVE)
[2023-07-09 12:54] LABS: BASOPHILS PERCENT AUTO 0.5 % (0.2-1.2); EOSINOPHILS ABSOLUTE AUTO 0.2 x10^3/uL (0.0-0.5); EOSINOPHILS PERCENT AUTO 4.5 % (0.0-4.0); HEMOGLOBIN 11.9 g/dL (12.0-16.0); LYMPHOCYTES PERCENT AUTO 25.5 % (25.0-50.0); MEAN CORPUSCULAR HEMOGLOBIN 29.2 pg (26.0-32.0); MEAN CORPUSCULAR HGB CONC 33.1 g/dL (32.0-36.0); MEAN CORPUSCULAR VOLUME 88.5 fL (78.0-93.0); MONOCYTES ABSOLUTE AUTO 0.4 x10^3/uL (0.0-0.8); MONOCYTES PERCENT AUTO 9.2 % (2.0-11.0); NEUTROPHILS ABSOLUTE AUTO 2.4 x10^3/uL (1.8-7.7); NEUTROPHILS PERCENT AUTO 60.3 % (50.0-80.0); PLATELET COUNT,PLT 142 x10^3/uL (130-400); RED BLOOD CELL COUNT 4.07 x10^6/uL (4.00-5.50)
[2023-07-09 13:11] LABS: A/G RATIO 1.09; ALANINE AMINOTRANSFERASE,ALT 34 U/L (14-59); ALBUMIN 3.6 g/dL (3.4-5.0); ALKALINE PHOSPHATASE 88 U/L (46-116); AMYLASE 30 U/L (25-115); ANION GAP 12.8 mmol/L (5-15); ASPARTATE AMNIOTRANSFERASE,AST 18 U/L (15-37); BILIRUBIN TOTAL 0.5 mg/dL (0.2-1.0); BLOOD UREA NITROGEN,BUN 10 mg/dL (7-18); C-REACTIVE PROTEIN 0.85 mg/dL (<=0.50); CALCIUM 9.1 mg/dL (8.5-10.1); CARBON DIOXIDE,CO2 28 mmol/L (21-32); CHLORIDE,CL 107 mmol/L (98-107); CREATININE 1.1 mg/dL (0.55-1.02); ESTIMATED GFR 57 mL/min (>=60); GLUCOSE RANDOM 104 mg/dL (70-99); LIPASE 36 U/L (19-71); MAGNESIUM 1.8 mg/dL (1.8-2.4); POTASSIUM,K 3.8 mmol/L (3.5-5.1); PROTEIN TOTAL,TP 6.9 g/dL (6.4-8.2); SODIUM,NA 144 mmol/L (136-145)
[2023-07-09] MEDS: Ketorolac 15 MG/ML SDV IVPUSH ONE (13:24)
[2023-07-09] MEDS: Magnesium Hydroxide 400 MG/5 ML Susp 30 ML Cup PO ONE (13:48)
== END 2023-07-09 14:14 | disposition home or self-care (01) ==
LOC: VM.ED 12:34
DX: K59.00 Constipation, unspecified (principal); K21.9 Gastro-esophageal reflux disease without esophagitis; Z79.899 Other long term (current) drug therapy; Z88.8 Allergy status to other drugs, medicaments and biological substances; Z91.018 Allergy to other foods; Z91.013 Allergy to seafood; Z88.0 Allergy status to penicillin; Z88.1 Allergy status to other antibiotic agents
CPT/HCPCS: 74019; 80053; 81003; 82150; 83690; 83735; 85025; 86140; 96361; 96374; 96375; 99283; 99284-25; A9270-GY; J1170; J1885; J7120

== ENCOUNTER 2023-07-22 14:36 | Emergency (ER) | payer MEDICARE, OTHER ==
[2023-07-22 15:11] LABS: BASOPHILS PERCENT AUTO 0.5 % (0.2-1.2); EOSINOPHILS ABSOLUTE AUTO 0.2 x10^3/uL (0.0-0.5); EOSINOPHILS PERCENT AUTO 4.9 % (0.0-4.0); HEMATOCRIT 39.5 % (33.0-47.0); HEMOGLOBIN 13.1 g/dL (12.0-16.0); LYMPHOCYTES ABSOLUTE AUTO 1.4 x10^3/uL (1.0-4.8); LYMPHOCYTES PERCENT AUTO 32.3 % (25.0-50.0); MEAN CORPUSCULAR HEMOGLOBIN 28.9 pg (26.0-32.0); MEAN CORPUSCULAR HGB CONC 33.2 g/dL (32.0-36.0); MEAN CORPUSCULAR VOLUME 87.2 fL (78.0-93.0); MONOCYTES ABSOLUTE AUTO 0.3 x10^3/uL (0.0-0.8); MONOCYTES PERCENT AUTO 7.3 % (2.0-11.0); NEUTROPHILS ABSOLUTE AUTO 2.4 x10^3/uL (1.8-7.7); PLATELET COUNT,PLT 189 x10^3/uL (130-400); RED BLOOD CELL COUNT 4.53 x10^6/uL (4.00-5.50); WHITE BLOOD CELL COUNT,WBC 4.3 x10^3/uL (4.0-10.0)
[2023-07-22 15:12] LABS: APPEARANCE,URINE CLEAR (CLEAR); BILIRUBIN,URINE NEGATIVE (NEGATIVE); COLOR,URINE YELLOW (YELLOW); GLUCOSE,URINE NEGATIVE (NEGATIVE); KETONES,URINE NEGATIVE (NEGATIVE); LEUKOCYTE ESTERASE,URINE NEGATIVE (NEGATIVE); NITRITE,URINE NEGATIVE (NEGATIVE); OCCULT BLOOD,URINE NEGATIVE (NEGATIVE); PROTEIN,URINE NEGATIVE (NEGATIVE); UROBILINOGEN,URINE 0.2 EU/dL (0.2)
[2023-07-22 15:19] LABS: BLOOD UREA NITROGEN,BUN 16 mg/dL (7-18); CALCIUM 9.7 mg/dL (8.5-10.1); CARBON DIOXIDE,CO2 25 mmol/L (21-32); CHLORIDE,CL 104 mmol/L (98-107); GLUCOSE RANDOM 100 mg/dL (70-99); POTASSIUM,K 3.5 mmol/L (3.5-5.1); SODIUM,NA 143 mmol/L (136-145)
[2023-07-22 15:20] LABS: ANION GAP 17.5 mmol/L (5-15); ESTIMATED GFR 64 mL/min (>=60)
[2023-07-22] MEDS: Ondansetron 4 MG/2 ML SDV IVPUSH ONE (16:07)
[2023-07-22] MEDS: Sodium Chloride 0.9% 1,000 ML IV ONE (16:07)
[2023-07-22] MEDS: Morphine 4 MG/ML Syringe IVPUSH ONE (16:09)
[2023-07-22] MEDS: Take Home: Acetaminophen/HYDROcodone 325-5 MG, 5 Tab Pack PO ONE (16:58)
== END 2023-07-22 17:03 | disposition home or self-care (01) ==
LOC: VM.ED 14:36
DX: N13.2 Hydronephrosis with renal and ureteral calculous obstruction (principal); Z91.013 Allergy to seafood; Z88.0 Allergy status to penicillin; Z88.2 Allergy status to sulfonamides; Z91.018 Allergy to other foods; Z88.8 Allergy status to other drugs, medicaments and biological substances; Z79.899 Other long term (current) drug therapy
CPT/HCPCS: 36415; 74176; 80048; 81003; 85025; 96374; 96375; 99283; 99284-25; A9270-GY; J2270; J2405; J7030

== ENCOUNTER 2024-06-20 17:43 | Emergency (ER) | payer MEDICARE ==
[2024-06-20] MEDS: diphenhydrAMINE 50 MG/ML SDV IVPUSH ONE (18:24)
[2024-06-20] MEDS: Ondansetron 4 MG/2 ML SDV IVPUSH ONE (18:24)
[2024-06-20] MEDS: Ketorolac 15 MG/ML SDV IVPUSH ONE (18:24)
[2024-06-20] MEDS: Lactated Ringers 1,000 ML IV SCH (18:32)
[2024-06-20] MEDS: HYDROmorphone 1 MG/ML Syringe IVPUSH ONE (18:44)
[2024-06-20] MEDS: Take Home: Ondansetron 4 MG Tab.DIS, 5 Tab Pack PO ONE (19:44)
== END 2024-06-20 19:45 | disposition home or self-care (01) ==
LOC: VM.ED 17:43
DX: G43.909 Migraine, unspecified, not intractable, without status migrainosus (principal); K21.9 Gastro-esophageal reflux disease without esophagitis; Z88.0 Allergy status to penicillin; Z88.2 Allergy status to sulfonamides; Z79.899 Other long term (current) drug therapy; Z88.8 Allergy status to other drugs, medicaments and biological substances; Z91.013 Allergy to seafood; Z91.048 Other nonmedicinal substance allergy status
CPT/HCPCS: 96361; 96374; 96375; 99283; 99283-25; J1171; J1200; J1885; J2405; J7120; Q0162

== ENCOUNTER 2024-09-28 08:08 | Emergency (ER) | payer MEDICARE ==
[2024-09-28] MEDS ORDERED: Sodium Chloride 0.9% 10 ML Syringe FLUSH PRN (08:35)
[2024-09-28 08:51] LABS: BASOPHILS ABSOLUTE AUTO 0.0 x10^3/uL (0.0-0.2); BASOPHILS PERCENT AUTO 0.9 % (0.2-1.2); EOSINOPHILS ABSOLUTE AUTO 0.2 x10^3/uL (0.0-0.5); EOSINOPHILS PERCENT AUTO 6.3 % (0.0-4.0); IMMATURE GRAN ABSOLUTE AUTO 0.00 x10^3/uL (0.00-0.07); IMMATURE GRAN PERCENT AUTO 0.00 % (0.00-0.43); LYMPHOCYTES ABSOLUTE AUTO 1.3 x10^3/uL (1.0-4.8); LYMPHOCYTES PERCENT AUTO 37.5 % (25.0-50.0); MONOCYTES ABSOLUTE AUTO 0.3 x10^3/uL (0.0-0.8); MONOCYTES PERCENT AUTO 8.6 % (2.0-11.0); NEUTROPHILS ABSOLUTE AUTO 1.6 x10^3/uL (1.8-7.7); NEUTROPHILS PERCENT AUTO 46.7 % (50.0-80.0); PLATELET COUNT,PLT 155 x10^3/uL (130-400); RED BLOOD CELL COUNT 4.16 x10^6/uL (4.00-5.50); WHITE BLOOD CELL COUNT,WBC 3.5 x10^3/uL (4.0-10.0)
[2024-09-28] MEDS: Lactated Ringers 1,000 ML IV ONE (08:58)
[2024-09-28] MEDS: diphenhydrAMINE 50 MG/ML SDV IVPUSH ONE (08:58)
[2024-09-28] MEDS: Ketorolac 15 MG/ML SDV IVPUSH ONE (08:58)
[2024-09-28 09:05] LABS: A/G RATIO 0.81; ALANINE AMINOTRANSFERASE,ALT 21.0 U/L (14-59); ASPARTATE AMNIOTRANSFERASE,AST 15.0 U/L (15-37); BILIRUBIN TOTAL 0.5 mg/dL (0.2-1.0); BLOOD UREA NITROGEN,BUN 12.0 mg/dL (7-18); CARBON DIOXIDE,CO2 29.0 mmol/L (21-32); CHLORIDE,CL 106.0 mmol/L (98-107); CREATININE 1.2 mg/dL (0.55-1.02); EST CRCL DRUG DOSING (CG) 48.4 mL/min; ESTIMATED GFR 51.0 mL/min (>=60); GLUCOSE RANDOM 98.0 mg/dL (70-99); POTASSIUM,K 4.4 mmol/L (3.5-5.1); PROTEIN TOTAL,TP 8.5 g/dL (6.4-8.2); SODIUM,NA 143.0 mmol/L (136-145)
[2024-09-28] MEDS: Promethazine 12.5 MG in Sodium Chloride 0.9% 100 ML IV ONE (09:20)
[2024-09-28] MEDS: Ondansetron 4 MG/2 ML SDV IVPUSH ONE (10:11)
[2024-09-28] MEDS: Iopamidol 755 Mg/ML 100 ML Bottle IVPUSH ONE (11:12)
[2024-09-28] MEDS ORDERED: CHLORPROMAZINE IV ONE (12:27)
[2024-09-28] MEDS ORDERED: SODIUM CHLORIDE 0.9% IV ONE (12:27)
[2024-09-28] MEDS: CHLORPROMAZINE IV ONE (12:35)
[2024-09-28] MEDS: SODIUM CHLORIDE 0.9% IV ONE (12:35)
== END 2024-09-28 13:25 | disposition home or self-care (01) ==
LOC: VM.ED 08:08
DX: G43.009 Migraine without aura, not intractable, without status migrainosus (principal); K21.9 Gastro-esophageal reflux disease without esophagitis; Z91.013 Allergy to seafood; Z88.0 Allergy status to penicillin; Z88.2 Allergy status to sulfonamides; Z88.8 Allergy status to other drugs, medicaments and biological substances; Z91.018 Allergy to other foods; Z79.899 Other long term (current) drug therapy
CPT/HCPCS: 70450; 70496; 80053; 85025; 96361; 96365; 96367; 96375; 99284; 99284-25; J1171; J1200; J1885; J2405; J2550; J2765; J3230; J7120; Q9967

== ENCOUNTER 2024-10-01 17:29 | Emergency (ER) | payer MEDICARE ==
[2024-10-01] MEDS: Ondansetron 4 MG/2 ML SDV IVPUSH ONE (17:56)
== END 2024-10-01 19:15 | disposition home or self-care (01) ==
LOC: VM.ED 17:29
DX: G43.909 Migraine, unspecified, not intractable, without status migrainosus (principal); K21.9 Gastro-esophageal reflux disease without esophagitis; Z88.0 Allergy status to penicillin; Z88.2 Allergy status to sulfonamides; Z91.013 Allergy to seafood; Z91.018 Allergy to other foods; Z88.8 Allergy status to other drugs, medicaments and biological substances; Z79.899 Other long term (current) drug therapy
CPT/HCPCS: 96361; 96374; 96375; 96376; 99283-25; 99284; J1171; J2405; J7030

== ENCOUNTER 2024-12-27 10:09 | Emergency (ER) | payer MEDICARE, OTHER ==
[2024-12-27] MEDS: Ketorolac 15 MG/ML SDV IVPUSH ONE (10:42)
[2024-12-27] MEDS: Ondansetron 4 MG/2 ML SDV IVPUSH ONE (10:42)
[2024-12-27 10:43] LABS: APPEARANCE,URINE CLOUDY (CLEAR); GLUCOSE,URINE NEGATIVE (NEGATIVE); OCCULT BLOOD,URINE SMALL (NEGATIVE)
[2024-12-27 10:56] LABS: SQUAMOUS EPITHELIAL CELLS,UR MODERATE /HPF (NOT SEEN)
[2024-12-27 12:06] LABS: BASOPHILS ABSOLUTE AUTO 0.0 x10^3/uL (0.0-0.2); BASOPHILS PERCENT AUTO 0.7 % (0.2-1.2); EOSINOPHILS ABSOLUTE AUTO 0.2 x10^3/uL (0.0-0.5); EOSINOPHILS PERCENT AUTO 5.9 % (0.0-4.0); IMMATURE GRAN ABSOLUTE AUTO 0.00 x10^3/uL (0.00-0.07); IMMATURE GRAN PERCENT AUTO 0.00 % (0.00-0.43); LYMPHOCYTES ABSOLUTE AUTO 1.0 x10^3/uL (1.0-4.8); LYMPHOCYTES PERCENT AUTO 33.2 % (25.0-50.0); MONOCYTES ABSOLUTE AUTO 0.3 x10^3/uL (0.0-0.8); MONOCYTES PERCENT AUTO 10.2 % (2.0-11.0); NEUTROPHILS ABSOLUTE AUTO 1.5 x10^3/uL (1.8-7.7); NEUTROPHILS PERCENT AUTO 50.0 % (50.0-80.0); PLATELET COUNT,PLT 193 x10^3/uL (130-400); RED BLOOD CELL COUNT 4.40 x10^6/uL (4.00-5.50); WHITE BLOOD CELL COUNT,WBC 3.0 x10^3/uL (4.0-10.0)
[2024-12-27 12:16] LABS: A/G RATIO 0.97; ALANINE AMINOTRANSFERASE,ALT 49.0 U/L (14-59); ASPARTATE AMNIOTRANSFERASE,AST 28.0 U/L (15-37); BILIRUBIN TOTAL 0.4 mg/dL (0.2-1.0); BLOOD UREA NITROGEN,BUN 19.0 mg/dL (7-18); CARBON DIOXIDE,CO2 24.0 mmol/L (21-32); CHLORIDE,CL 106.0 mmol/L (98-107); CREATININE 1.3 mg/dL (0.55-1.02); EST CRCL DRUG DOSING (CG) 44.68 mL/min; GLUCOSE RANDOM 119.0 mg/dL (70-99); POTASSIUM,K 4.3 mmol/L (3.5-5.1); PROTEIN TOTAL,TP 7.7 g/dL (6.4-8.2); SODIUM,NA 139.0 mmol/L (136-145)
[2024-12-27 12:19] LABS: ESTIMATED GFR 46.0 mL/min (>=60)
[2024-12-27] MEDS: Take Home: Ketorolac 10 MG Tab, 4 Tab Pack PO ONE (12:29)
== END 2024-12-27 12:43 | disposition home or self-care (01) ==
LOC: VM.ED 10:09
DX: N13.2 Hydronephrosis with renal and ureteral calculous obstruction (principal); K21.9 Gastro-esophageal reflux disease without esophagitis; Z88.0 Allergy status to penicillin; Z91.013 Allergy to seafood; Z88.2 Allergy status to sulfonamides; Z91.018 Allergy to other foods; Z88.8 Allergy status to other drugs, medicaments and biological substances; Z79.899 Other long term (current) drug therapy
CPT/HCPCS: 74176; 80053; 81001; 85025; 96374; 96375; 99284; 99284-25; A9270-GY; J1885; J2405